=== PATIENT | female | born 1950 | race Caucasian/White ===

== ENCOUNTER 2017-11-06 20:19 | Emergency (ER) | payer MEDICARE, OTHER ==
--- NOTE | 2017-11-06 21:27 | Emergency Department Record ---
History of Present Illness - General Chief Complaint: Slurred speech Stated Complaint: NECK PAIN,DIFFICULTY SPEEKING Time Seen by Provider: 11/06/17 20:57 Source: Patient, Family Mode of Arrival: Wheelchair Limitations: No limitations - History of Present Illness Initial Comments: pt had dialysis today and afterwards developed slurred speech similar to when she had a tia in the past. it is improving. she has no new weakness or numbness. pt also had some transient weakness in the r hand. Onset/Timin -: Minutes(s) Location: Speech History of same: Yes Place: Home Severity: Mild Quality: Constant Improves With: None Worsens With: None On Anticoagulants: Yes Context: Sudden onset Associated Symptoms: Weakness Treatments Prior to Arrival: None - Irwin Coma Scale Eye Response: (4) Open spontaneously Motor Response: (6) Obeys commands Verbal Response: (5) Oriented Jennifer Total: 15 - Symptoms of Stroke Onset of Symptoms Date: 11/06/17 Symptom Onset Unknown: No Symptoms of stroke: Slurred Speech - Related Data Home Medications: Home Medications Medication Instructions Recorded Confirmed Last Taken Amlodipine Besylate 5 mg PO DAILY 11/06/17 11/06/17 Unknown Aspirin [Aspirin EC] 81 mg PO BID 11/06/17 11/06/17 Unknown Atorvastatin Calcium 40 mg PO QHS 11/06/17 11/06/17 Unknown Furosemide [Lasix] 20 mg PO DAILY 11/06/17 11/06/17 Unknown Gabapentin [Neurontin] 100 mg PO TID 11/06/17 11/06/17 Unknown Glimepiride [Amaryl] 1 mg PO QAM 11/06/17 11/06/17 Unknown Lisinopril [Prinivil] 5 mg PO DAILY 11/06/17 11/06/17 Unknown Metoprolol Succinate 50 mg PO DAILY 11/06/17 11/06/17 Unknown Ropinirole HCl [Requip] 0.25 mg PO QHS 11/06/17 11/06/17 Unknown Sevelamer Carbonate [Renvela] 800 mg PO TID 11/06/17 11/06/17 Unknown Allergies/Adverse Reactions: Allergies Allergy/AdvReac Type Severity Reaction Status Date / Time zolpidem [From Ambien] AdvReac ALTERED Verified 11/06/17 20:54 MENTAL STATUS Travel Screening - Travel/Exposure Within Last 30 Days Have you traveled within the last 30 days?: No - Travel Symptoms Symptom Screening: Weakness Review of Systems Reviewed: No additional complaints except as noted below Constitutional: Reports: As per HPI. Denies: Chills, Fever, Malaise, Night sweats, Weakness, Weight change Eyes: Reports: As per HPI. Denies: Eye discharge, Eye pain, Photophobia, Vision change ENT: Reports: As per HPI. Denies: Congestion, Dental pain, Ear pain, Epistaxis , Hearing loss, Throat pain Respiratory: Reports: As per HPI. Denies: Cough, Dyspnea, Hemoptysis, Stridor, Wheezes Cardiovascular: Reports: As per HPI. Denies: Arrhythmia, Chest pain, Dyspnea on exertion, Edema, Murmurs, Orthopnea, Palpitations, Paroxysmal nocturnal dyspnea, Rheumatic Fever, Syncope Endocrine: Reports: As per HPI. Denies: Fatigue, Heat or cold intolerance, Polydipsia, Polyuria Gastrointestinal: Reports: As per HPI. Denies: Abdominal pain, Constipation, Diarrhea, Hematemesis, Hematochezia, Melena, Nausea, Vomiting Genitourinary: Reports: As per HPI. Denies: Abnormal menses, Discharge, Dyspareunia, Dysuria, Frequency, Hematuria, Incontinence, Retention, Urgency Musculoskeletal: Reports: As per HPI. Denies: Arthralgia, Back pain, Gout, Joint swelling, Myalgia, Neck pain Skin: Reports: As per HPI. Denies: Bruising, Change in color, Change in hair/ nails, Lesions, Pruritus, Rash Neurological: Reports: As per HPI. Denies: Abnormal gait, Confusion, Headache, Numbness, Paresthesias, Seizure, Tingling, Tremors, Vertigo, Weakness Psychiatric: Reports: As per HPI. Denies: Anxiety, Auditory hallucinations, Depression, Homicidal thoughts, Suicidal thoughts, Visual hallucinations Hematological/Lymphatic: Reports: As per HPI. Denies: Anemia, Blood Clots, Easy bleeding, Easy bruising, Swollen glands Past Medical History - SOCIAL HISTORY Smoking Status: Never smoker Alcohol Use: None Drug Use: None - RESPIRATORY Hx Respiratory Disorders: No - CARDIOVASCULAR Hx Cardio Disorders: No - NEURO Hx Neuro Disorders: Yes Hx TIA: Yes ("MINI" STROKES) - GI Hx GI Disorders: No - Hx Genitourinary Disorders: No - ENDOCRINE Hx Endocrine Disorders: Yes Hx Diabetes: Yes (DMII) Hx Thyroid Disease: No - MUSCULOSKELETAL Hx Musculoskeletal Disorders: Yes Hx Gout: Yes - PSYCH Hx Psych Problems: No - HEMATOLOGY/ONCOLOGY Hx Hematology/Oncology Disorders: No Family Medical History Any Significant Family History?: No Physical Exam - General General Appearance: Alert, Oriented x3, Cooperative, Mild distress - Head Head exam: Normal inspection - Eye Eye exam: Normal appearance, PERRL, EOMI Pupils: Normal accommodation - ENT ENT exam: Normal exam, Mucous membranes moist, Normal external ear exam, Normal orophraynx Ear exam: Normal external inspection. negative: External canal tenderness Nasal Exam: Normal inspection. negative: Discharge, Sinus tenderness Mouth exam: Normal external inspection, Tongue normal Teeth exam: Normal inspection. negative: Dental caries Throat exam: Normal inspection. negative: Tonsillar erythema, Tonsillar exudate - Neck Neck exam: Normal inspection, Full ROM. negative: Tenderness - Respiratory Respiratory exam: Normal lung sounds bilaterally. negative: Respiratory distress - Cardiovascular Cardiovascular Exam: Regular rate, Normal rhythm, Normal heart sounds - GI/Abdominal GI/Abdominal exam: Soft, Normal bowel sounds. negative: Tenderness - Rectal Rectal exam: Deferred - exam: Deferred - Extremities Extremities exam: Normal inspection, Full ROM, Normal capillary refill. negative: Tenderness - Back Back exam: Reports: Normal inspection, Full ROM. Denies: Muscle spasm, Rash noted, Tenderness - Neurological Neurological exam: Alert, CN II-XII intact, Normal gait, Oriented X3, Other ( very slight slurring of speech) - Psychiatric Psychiatric exam: Normal affect, Normal mood - Skin Skin exam: Dry, Intact, Normal color, Warm Course Vital Signs 11/06/17 20:37 Temperature 99.0 F Pulse Rate [ 87 Pulse Ox Probe] Respiratory 20 Rate Blood Pressure 116/60 [Left Arm] Pulse Ox 97 Medical Decision Making - Lab Data Result diagrams: 11/06/17 21:10 11/06/17 21:10 Disposition Disposition: Transfer Clinical Impression: TIA (transient ischemic attack) Qualifiers: Transient cerebral ischemia type: unspecified Qualified Code(s): G45.9 - Transient cerebral ischemic attack, unspecified Disposition: Acute Care Hospital Transfer Transfer To: [facility] Reason For Transfer: stroke team Accepting Physician: derrick jorge Time Discussed w/Accepting Physician: 22:38 Forms: Patient Portal Access Quality - Quality Measures Quality Measures: N/A - Blood Pressure Screening Does Patient Have Any of the Following: Active Dx of HTN Blood Pressure Classification: Hypertensive Reading Systolic Measurement: 142 Diastolic Measurement: 63 Screening for High Blood Pressure: Patient Exclusion, Hx of HTN [G9744]
[2017-11-06 21:42] LABS: BASO % 0.1 % (0-6); EOS % 2.2 % (0-6); GRAN % 72.1 % (47-80); HEMATOCRIT 25.8 % (35.0-47.0); HEMOGLOBIN 8.3 gm/dl (11.6-16.0); LYMPH % 16.9 % (16-45); MEAN CORPUSCULAR HEMOGLOBIN 31.2 pg (27-33); MEAN CORPUSCULAR HGB CONC 32.2 g/dl (32-36); MEAN PLATELET VOLUME 8.3 fl (7.4-10.4); MONO % 8.7 % (0-9); PLATELET COUNT 281 K/uL (130-400); RED BLOOD COUNT 2.66 M/uL (3.80-5.40); RED CELL DISTRIBUTION WIDTH 13.9 % (11.5-14.5); WHITE BLOOD COUNT W/O DIFF 10.6 K/uL (4.2-12.2)
[2017-11-06 21:50] LABS: CREATININE 2.6 mg/dL (0.5-0.9)
--- NOTE | 2017-11-08 14:04 | CT SCAN REPORT ---
EXAM: EMERGENCY HEAD CT WITHOUT CONTRAST HISTORY: SLURRED SPEECH, VERTIGO, TUNNEL VISION. TECHNIQUE: Axial CT scan of the head was performed without IV contrast. Comparison: None. FINDINGS: No definite acute intracranial hemorrhage identified. No focal mass effect or midline shift evident. Moderate generalized atrophy is present and there is prominent chronic appearing diffuse deep white matter changes, nonspecific, but likely representing some chronic small vessel deep white matter ischemic disease. No definite acute infarct or intracranial mass lesion is seen. No depressed calvarial fracture is evident. IMPRESSION: 1. NO DEFINITE ACUTE INTRACRANIAL HEMORRHAGE OR FOCAL MASS EFFECT EVIDENT. 2. MODERATE GENERALIZED ATROPHY WITH DIFFUSE CHRONIC APPEARING DEEP WHITE MATTER CHANGES. [facility]BER: [id number] [facility]
== END 2017-11-06 23:50 | disposition short-term general hospital (02) ==
LOC: ER 20:19
DX: G45.9 Transient cerebral ischemic attack, unspecified (principal); E11.9 Type 2 diabetes mellitus without complications; I10 Essential (primary) hypertension; Z99.2 Dependence on renal dialysis; Z86.73 Personal history of transient ischemic attack (TIA), and cerebral infarction without residual deficits
CPT/HCPCS: 70450; 80048; 85025; 99285

== ENCOUNTER 2018-03-11 15:07 | Emergency (ER) | payer MEDICARE, OTHER ==
--- NOTE | 2018-03-11 15:31 | Emergency Department Record ---
History of Present Illness - General Chief Complaint: Shortness of breath Stated Complaint: HANNA Time Seen by Provider: 03/11/18 15:24 Source: Patient, Family Mode of Arrival: Wheelchair Limitations: No limitations - History of Present Illness Initial Comments: Pt to the ED with daughter with complaint of HANNA. Pt with hs COPD and using inhalers x 2 at home. Currently on prednisone for and "ear issue". No nebulizer at home. No fever or cough with sputum. Smoke quit for 5-6 years. Had normal dialysis today without incident. No CP. Onset/Timin -: Hour(s) Consistency: Constant Improves With: Nothing Worsens With: Lying flat Known History Of: COPD Associated Symptoms: Denies other symptoms - Related Data Home Oxygen Therapy: Yes Home Oxygen Amount: 2 Liters Allergies Allergy/AdvReac Type Severity Reaction Status Date / Time zolpidem [From Ambien] AdvReac ALTERED Verified 11/06/17 20:54 MENTAL STATUS Travel Screening - Travel/Exposure Within Last 30 Days Have you traveled within the last 30 days?: No Review of Systems Constitutional: Denies: Chills, Fever, Weakness Eyes: Denies: Eye discharge ENT: Denies: Congestion, Epistaxis Respiratory: Reports: As per HPI, Cough, Dyspnea, Wheezes. Denies: Hemoptysis Cardiovascular: Denies: Arrhythmia, Chest pain, Palpitations Endocrine: Denies: Fatigue Gastrointestinal: Denies: Abdominal pain, Constipation, Vomiting Musculoskeletal: Denies: Arthralgia, Back pain Skin: Denies: Rash Neurological: Denies: Abnormal gait, Headache, Numbness Psychiatric: Denies: Anxiety, Suicidal thoughts Hematological/Lymphatic: Denies: Swollen glands Past Medical History - SOCIAL HISTORY Smoking Status: Never smoker - RESPIRATORY Hx Respiratory Disorders: No - CARDIOVASCULAR Hx Cardio Disorders: No - NEURO Hx Neuro Disorders: Yes Hx TIA: Yes ("MINI" STROKES) - GI Hx GI Disorders: No - Hx Genitourinary Disorders: No Hx Dialysis: Yes Hx Renal Disease: Yes Hx UTI: Yes (with urosepsis) - ENDOCRINE Hx Endocrine Disorders: Yes Hx Diabetes: Yes (DMII) Hx Thyroid Disease: No - MUSCULOSKELETAL Hx Musculoskeletal Disorders: Yes Hx Gout: Yes - PSYCH Hx Psych Problems: No - HEMATOLOGY/ONCOLOGY Hx Hematology/Oncology Disorders: No Family Medical History Any Significant Family History?: Yes Physical Exam - General General Appearance: Alert, Oriented x3, Cooperative, Mild distress - Head Head exam: Atraumatic - Eye Eye exam: Normal appearance, PERRL - ENT ENT exam: Normal exam, TM's normal bilaterally Ear exam: Normal external inspection - Neck Neck exam: Normal inspection. negative: Lymphadenopathy, Tenderness - Respiratory Respiratory exam: Decreased breath sounds, Prolonged expiratory, Rhonchi. negative: Rales, Stridor, Wheezes - Cardiovascular Cardiovascular Exam: Regular rate, Normal rhythm. negative: Tachycardia Peripheral Pulses: 2+: Radial (R), Radial (L) - GI/Abdominal GI/Abdominal exam: Soft, Normal bowel sounds. negative: Guarding, Tenderness - Extremities Extremities exam: Normal inspection. negative: Calf tenderness, Pedal edema - Back Back exam: Reports: Normal inspection - Neurological Neurological exam: Alert, Oriented X3 (normal speech) - Psychiatric Psychiatric exam: Normal affect, Normal mood - Skin Skin exam: Normal color. negative: Rash Course Vital Signs 03/11/18 15:14 Temperature 98.4 F Pulse Rate 85 Respiratory 20 Rate Blood Pressure 160/66 Pulse Ox 94 L - Reevaluation(s) Reevaluation #1: 03/11/18 16:03 slightly better after treatment with Neb. To XRay Reevaluation #2: 03/11/18 16:43 Pt much better. Xray with mild fluid overload and pt is just post dialysis. Pt comfortable with PO 97% on 1 liter Oxygen. Has home O2. Daughter and pt agree with the plan. Procedures - EKG Initial Date: 03/11/18 Time: 16:02 EKG: Normal EKG Medical Decision Making - Data Complexity MDM Data: Labs Ordered and/or Reviewed, X-Ray Ordered and/or Reviewed, EKG Ordered and/or Reviewed - Lab Data Result diagrams: 03/11/18 15:40 03/11/18 15:40 - EKG Data -: EKG Interpreted by Me EKG: Normal EKG - Radiology Data Radiology results: Report reviewed, Image reviewed Disposition Disposition: Discharge Clinical Impression: Dyspnea Disposition: Home, Self-Care Condition: (2) Stable Instructions: Dyspnea (ED) Additional Instructions: Continue to use your oxygen at home tonight and as needed tomorrow. If you feel more short of breath return to the ED or call 911. Use you home medciations as directed previously. Daughter agrees Forms: Patient Portal Access Quality - Blood Pressure Screening Does Patient Have Any of the Following: No Blood Pressure Classification: Hypertensive Reading Systolic Measurement: 160 Diastolic Measurement: 66
[2018-03-11] MEDS ORDERED: IPRATROPIUM/ALBUTEROL (0.5MG/3MG) NEB INH ONE ×2 (15:33→16:30)
[2018-03-11 15:49] LABS: HEMATOCRIT 29.1 % (35.0-47.0); HEMOGLOBIN 9.6 gm/dl (11.6-16.0); MEAN CELL VOLUME 94.2 fl (81-97); MEAN PLATELET VOLUME 8.2 fl (7.4-10.4); PLATELET COUNT 179 K/uL (130-400); RED BLOOD COUNT 3.09 M/uL (3.80-5.40); RED CELL DISTRIBUTION WIDTH 12.8 % (11.5-14.5); WHITE BLOOD COUNT W/O DIFF 6.4 K/uL (4.2-12.2)
[2018-03-11 16:00] LABS: HYPOCHROMIA 1+; PLATELET ESTIMATE NORMAL (NORMAL)
--- NOTE | 2018-03-13 08:12 | RADIOLOGY REPORT ---
EXAM: CHEST, TWO VIEWS HISTORY: DIFFICULTY BREATHING, DIALYSIS PATIENT. TECHNIQUE: PA and lateral views of the chest were obtained. Comparison: None. FINDINGS: Frontal and lateral views of the chest show well expanded lungs. Diffuse peribronchial thickening. Mild pulmonary vascular congestion and peribronchial thickening. No air space disease. No pleural effusion or pneumothorax. The cardiomediastinal silhouette is within normal limits. The bony structures are unremarkable. IMPRESSION: MILD PULMONARY VASCULAR CONGESTION/FLUID OVERLOAD. THERE IS ALSO MILD PERIBRONCHIAL THICKENING. RECOMMEND FOLLOW-UP RADIOGRAPHS IN FOUR TO SIX WEEKS. [facility]BER: [id number] [facility]
== END 2018-03-11 17:03 | disposition home or self-care (01) ==
LOC: ER 15:07
DX: R06.00 Dyspnea, unspecified (principal); I12.0 Hypertensive chronic kidney disease with stage 5 chronic kidney disease or end stage renal disease; E11.22 Type 2 diabetes mellitus with diabetic chronic kidney disease; N18.6 End stage renal disease; J44.9 Chronic obstructive pulmonary disease, unspecified; Z87.891 Personal history of nicotine dependence; Z79.84 Long term (current) use of oral hypoglycemic drugs; Z99.81 Dependence on supplemental oxygen; Z99.2 Dependence on renal dialysis
CPT/HCPCS: 71046; 80048; 85027; 93005; 93010; 94640; 99284

== ENCOUNTER 2018-04-11 19:24 | Emergency (ER) | payer MEDICARE, OTHER ==
[2018-04-11] MEDS ORDERED: IPRATROPIUM/ALBUTEROL (0.5MG/3MG) NEB INH ONE (19:31)
[2018-04-11] MEDS ORDERED: METHYLPREDNISOLONE PF 125MG/VIAL IVP ONE (19:31)
--- NOTE | 2018-04-11 19:36 | Emergency Department Record ---
History of Present Illness - General Chief complaint: ENT Stated complaint: SORE THROAT,COUGH Time Seen by Provider: 04/11/18 19:30 Source: Patient Mode of Arrival: Ambulatory Limitations: No limitations - History of Present Illness Initial comments: 67 yo female presents with several days of cough, green sputum, shortness of breath. She has associated shortness of breath. She states she has been exposed to others with similar symptoms. She states she has COPD and has had pneumonia in the past. She is up to date on her Flu and Pneumonia shot. She is on oxygen at home only at night time. She is not a smoker currently but quit 8 years ago. She does live with smokers. No history of CAD per the patient. She does have ESRD on HD Saturday, , Saturday. She states she did have a full HD run on . She states she does not know the name of her family doctor or her fur ironer but they are at [facility]. Initial room air oxygen levels were mid 70's after walking in from the lobby. She states she only uses oxygen PRN at night. MD complaint: Sore throat, Other (cough, short of breath) -: Days(s) Location: Throat Severity: Moderate Quality: Aching Consistency: Constant Improves with: None Worsens with: Swallowing Context-Epistaxis: History of similar Associated Symptoms: Cough, Fever, Rhinorrhea, Sore throat - Related Data Home Medications Medication Instructions Recorded Confirmed Last Taken Citalopram Hydrobromide 20 mg PO DAILY 04/11/18 04/11/18 Unknown [Citalopram HBr] Fluticasone/Salmeterol [Advair 1 each IH DAILY 04/11/18 04/11/18 Unknown 500-50 Diskus] Melatonin 5 mg PO QHS PRN 04/11/18 04/11/18 Unknown Tiotropium [place] [Spiriva] 1 cap IH DAILY 04/11/18 04/11/18 Unknown Allergies Allergy/AdvReac Type Severity Reaction Status Date / Time zolpidem [From Ambien] AdvReac ALTERED Verified 11/06/17 20:54 MENTAL STATUS Review of Systems Constitutional: Reports: Fever, Malaise, Weakness. Denies: Chills Eyes: Denies: Eye discharge, Eye pain, Photophobia, Vision change ENT: Reports: Congestion, Throat pain Respiratory: Reports: Cough, Dyspnea, Wheezes. Denies: Hemoptysis Cardiovascular: Denies: Chest pain, Palpitations, Syncope Endocrine: Reports: Fatigue Gastrointestinal: Denies: Abdominal pain, Diarrhea, Nausea, Vomiting Genitourinary: Denies: Dysuria, Urgency Musculoskeletal: Denies: Arthralgia, Back pain, Joint swelling, Myalgia Skin: Denies: Bruising, Change in color, Rash Neurological: Denies: Headache Psychiatric: Denies: Anxiety Hematological/Lymphatic: Denies: Blood Clots, Easy bleeding, Easy bruising, Swollen glands Past Medical History - SOCIAL HISTORY Smoking Status: Never smoker - RESPIRATORY Hx Respiratory Disorders: No - CARDIOVASCULAR Hx Cardio Disorders: No - NEURO Hx Neuro Disorders: Yes Hx TIA: Yes ("MINI" STROKES) - GI Hx GI Disorders: No - Hx Genitourinary Disorders: No Hx Dialysis: Yes Hx Renal Disease: Yes Hx UTI: Yes (with urosepsis) - ENDOCRINE Hx Endocrine Disorders: Yes Hx Diabetes: Yes (DMII) Hx Thyroid Disease: No - MUSCULOSKELETAL Hx Musculoskeletal Disorders: Yes Hx Gout: Yes - PSYCH Hx Psych Problems: No - HEMATOLOGY/ONCOLOGY Hx Hematology/Oncology Disorders: No Physical Exam - General General Appearance: Alert, Oriented x3, Cooperative Limitations: No limitations - Head Head exam: Atraumatic, Normal inspection - Eye Eye exam: Normal appearance. negative: Conjunctival injection, Scleral icterus - ENT ENT exam: Normal exam, Normal orophraynx. negative: Mucous membranes moist Ear exam: Normal external inspection Nasal Exam: Normal inspection Mouth exam: Normal external inspection Teeth exam: Normal inspection Throat exam: Normal inspection - Neck Neck exam: Normal inspection, Full ROM. negative: Lymphadenopathy, Meningismus - Respiratory Respiratory exam: Decreased breath sounds, Prolonged expiratory, Rhonchi, Wheezes. negative: Normal lung sounds bilaterally - Cardiovascular Cardiovascular Exam: Regular rate, Normal rhythm, Normal heart sounds Peripheral Pulses: 2+: Radial (R), Radial (L) - GI/Abdominal GI/Abdominal exam: Soft. negative: Tenderness - Rectal Rectal exam: Deferred - exam: Deferred - Extremities Extremities exam: Normal inspection, Full ROM, Normal capillary refill. negative: Pedal edema, Tenderness - Back Back exam: Denies: CVA tenderness (R), CVA tenderness (L) - Neurological Neurological exam: Alert, Oriented X3 - Psychiatric Psychiatric exam: Normal affect, Normal mood. negative: Agitated, Anxious - Skin Skin exam: Dry, Intact, Normal color, Warm Course - Reevaluation(s) Reevaluation #1: The patient's oxygen level increased to low 90's with 3 LNC and a Duoneb. EKG 19:46 Sinus Rhythm, Rate is 78, Intervals normal, [place] normal, ST normal. No change from 03/11/18 04/11/18 19:51 04/11/18 20:03 [facility] Records reviewed. Hx of COPD,ESRD,CHF,DM,Anemia,HTN,Former heavy smoker , TIA, UTI, Elevated Cholesterol, PAD 04/11/18 20:12 The labs were reviewed The CBC demonstrates a chronic stable anemia with hgb of 10.2 The CR is 3.2 with a K of 3.8 The strep and influenza are negative 04/11/18 20:14 The patient's daughter is now in the ED. She states the PCP is Duc Sheets. The daughter in the room states she personally tested positive for strep 04/11/18 20:17 Patient on 2 LNC with improved work of breathing. No sign of fatigue. 04/11/18 20:19 Troponin is 0.024 ONE CALL called at [facility] to arrange transfer 04/11/18 20:29 CXR was read as no acute infiltrate or effusion. NO PVC. 04/11/18 20:42 Dr Culp of the hospitalist service accepts the patient for transfer 04/11/18 20:46 04/11/18 21:15 EMS in the ED and is stable for transfer. Medical Decision Making - Lab Data Result diagrams: 04/11/18 19:45 04/11/18 19:45 Disposition Disposition: Transfer Clinical Impression: Dyspnea, Hypoxia, ESRD (end stage renal disease), COPD (chronic obstructive pulmonary disease) with acute bronchitis Disposition: Acute Care Hospital Transfer Transfer To: [facility] Reason For Transfer: ESRD on HD, Hypoxia,COPD with Bronchitis Accepting Physician: Suni Time Discussed w/Accepting Physician: 20:43 Condition: (2) Stable Forms: Patient Portal Access Time of Disposition: 19:53 Quality - Quality Measures Quality Measures: N/A - Blood Pressure Screening Does Patient Have Any of the Following: Active Dx of HTN Blood Pressure Classification: Hypertensive Reading Systolic Measurement: 152 Diastolic Measurement: 61 Screening for High Blood Pressure: Patient Exclusion, Hx of HTN [G9744]
[2018-04-11 19:56] LABS: BASO % 0.2 % (0-6); EOS % 0.9 % (0-6); GRAN % 78.4 % (47-80); HEMATOCRIT 32.7 % (35.0-47.0); HEMOGLOBIN 10.7 gm/dl (11.6-16.0); LYMPH % 12.6 % (16-45); MEAN CORPUSCULAR HEMOGLOBIN 30.7 pg (27-33); MEAN CORPUSCULAR HGB CONC 32.7 g/dl (32-36); MEAN PLATELET VOLUME 8.8 fl (7.4-10.4); MONO % 7.9 % (0-9); PLATELET COUNT 194 K/uL (130-400); RED BLOOD COUNT 3.48 M/uL (3.80-5.40); RED CELL DISTRIBUTION WIDTH 13.5 % (11.5-14.5); WHITE BLOOD COUNT W/O DIFF 8.6 K/uL (4.2-12.2)
[2018-04-11 20:09] LABS: BILIRUBIN,TOTAL 0.8 mg/dL (0.2-1.0); CREATININE 3.8 mg/dL (0.5-0.9); INFLUENZA A NEGATIVE (NEGATIVE); INFLUENZA B NEGATIVE (NEGATIVE); STREP A SCREEN NEGATIVE (NEGATIVE)
[2018-04-11 20:10] LABS: TOTAL PROTEIN 6.5 g/dL (6.6-8.7)
[2018-04-11] MEDS ORDERED: CEFTRIAXONE SODIUM 1 GM in 0.9 % SODIUM CHLORIDE 100ML 100 ML IVPB ONE (20:13)
[2018-04-11] MEDS ORDERED: AZITHROMYCIN 500 MG TABLET PO ONE (20:13)
[2018-04-11 20:15] LABS: ALB/GLOB RATIO 1.2 (1.1-1.8); ALBUMIN 3.6 g/dL (4.0-5.0)
--- NOTE | 2018-04-14 10:37 | RADIOLOGY REPORT ---
EXAM: CHEST, TWO VIEWS HISTORY: DIFFICULTY BREATHING. TECHNIQUE: Frontal and lateral views of the chest were performed. Comparison: 03/11/18. FINDINGS: The heart size is normal. No pulmonary vascular congestion. No infiltrate or pleural effusion. IMPRESSION: NO ACUTE DISEASE PROCESS. JOB NUMBER: [id number] [facility]
== END 2018-04-11 21:23 | disposition short-term general hospital (02) ==
LOC: ER 19:24
DX: E11.22 Type 2 diabetes mellitus with diabetic chronic kidney disease (principal); I13.2 Hypertensive heart and chronic kidney disease with heart failure and with stage 5 chronic kidney disease, or end stage renal disease; I50.9 Heart failure, unspecified; N18.6 End stage renal disease; R09.02 Hypoxemia; J44.9 Chronic obstructive pulmonary disease, unspecified; J02.9 Acute pharyngitis, unspecified; J20.9 Acute bronchitis, unspecified; Z87.891 Personal history of nicotine dependence; Z99.81 Dependence on supplemental oxygen; Z99.2 Dependence on renal dialysis; Z86.73 Personal history of transient ischemic attack (TIA), and cerebral infarction without residual deficits
CPT/HCPCS: 71046; 80053; 84484; 85025; 87400; 87880; 93005; 93010; 94640; 96365; 96375; 99285; J2930

== ENCOUNTER 2018-06-04 21:11 | Emergency (ER) | payer MEDICARE, OTHER ==
[2018-06-04 21:35] LABS: BASO % 0.1 % (0-6); GRAN % 74.9 % (47-80); HEMOGLOBIN 11.4 gm/dl (11.6-16.0); LYMPH % 17.6 % (16-45); MEAN CELL VOLUME 93.5 fl (81-97); MEAN CORPUSCULAR HEMOGLOBIN 29.6 pg (27-33); MEAN CORPUSCULAR HGB CONC 31.7 g/dl (32-36); MEAN PLATELET VOLUME 8.5 fl (7.4-10.4); MONO % 5.4 % (0-9); PLATELET COUNT 183 K/uL (130-400); RED BLOOD COUNT 3.85 M/uL (3.80-5.40); RED CELL DISTRIBUTION WIDTH 13.8 % (11.5-14.5); WHITE BLOOD COUNT W/O DIFF 8.6 K/uL (4.2-12.2)
--- NOTE | 2018-06-04 21:41 | Emergency Department Record ---
History of Present Illness - General Chief Complaint: Dizziness Stated Complaint: LIP NUMBNESS, OFF BALANCE Time Seen by Provider: 06/04/18 21:13 Source: Patient, Family Mode of Arrival: Wheelchair Limitations: No limitations - History of Present Illness Initial Comments: The patient is here due to feeling off balance for 2 days intermittently. She has a long hx of balance issues and does use a cane for walking. The symptoms seem to be worse the last 2 days and are sometimes worse with bending over. This evening she had numbness to her tongue and lower lip that lasted for a few minutes and then resolved. Due to that fact she decided to come to the ER. The patient has a hx of renal failure and is on dialysis , , and Sat. She did miss her last Saturday diaysis appointment due to the weather. She denies any arm or leg numbness, weakness, visual changes, or speech problems. The patient does have a hx of "ministrokes" per her daughter and was here in the ER in November for similar issues as today. She was sent to [facility] and had a neg workup. MD Complaint: Dizziness Onset/Timin -: Days(s) Timing: Gradual onset Description: Off-balance History of Same: Yes History of Trauma: No Severity: Moderate Worsens With: Nothing Associated Symptoms: Denies other symptoms - [place] Coma Scale Eye Response: (4) Open spontaneously Motor Response: (6) Obeys commands Verbal Response: (5) Oriented Jennifer Total: 15 - Related Data Home Medications Medication Instructions Recorded Confirmed Last Taken Allopurinol 100 mg PO BID 06/04/18 06/04/18 Unknown Glipizide 5 mg PO DAILY 06/04/18 06/04/18 Unknown Allergies Allergy/AdvReac Type Severity Reaction Status Date / Time zolpidem [From Ambien] AdvReac ALTERED Verified 06/04/18 21:56 MENTAL STATUS Travel Screening - Travel/Exposure Within Last 30 Days Have you traveled within the last 30 days?: No - Travel Symptoms Symptom Screening: None Review of Systems Constitutional: Denies: Chills, Fever Eyes: Denies: Eye discharge ENT: Denies: Congestion Respiratory: Denies: Cough Cardiovascular: Denies: Arrhythmia Endocrine: Denies: Fatigue Gastrointestinal: Denies: Abdominal pain, Nausea Genitourinary: Denies: Other Musculoskeletal: Denies: Arthralgia, Back pain Skin: Denies: Bruising Neurological: Reports: Abnormal gait. Denies: Confusion Past Medical History - SOCIAL HISTORY Smoking Status: Never smoker Alcohol Use: None Drug Use: None - RESPIRATORY Hx Respiratory Disorders: Yes Hx COPD: Yes Comment:: O2 at night - CARDIOVASCULAR Hx Cardio Disorders: Yes Hx CHF: Yes Comment:: high cholesterol - NEURO Hx Neuro Disorders: Yes Hx TIA: Yes ("MINI" STROKES) - GI Hx GI Disorders: No - Hx Genitourinary Disorders: Yes Hx Dialysis: Yes Hx Renal Disease: Yes (STAGE 4) Hx UTI: Yes (with urosepsis) - ENDOCRINE Hx Endocrine Disorders: Yes Hx Diabetes: Yes (DMII) Hx Thyroid Disease: No - MUSCULOSKELETAL Hx Musculoskeletal Disorders: Yes Hx Gout: Yes - PSYCH Hx Psych Problems: No - HEMATOLOGY/ONCOLOGY Hx Hematology/Oncology Disorders: No Family Medical History Any Significant Family History?: Yes Hx Cancer: Brother/Sister Hx Heart Disease: Mother Physical Exam - General General Appearance: Alert, Oriented x3, Cooperative, No acute distress - Head Head exam: Atraumatic, Normocephalic, Normal inspection - Eye Eye exam: Normal appearance, PERRL, EOMI - ENT Throat exam: Normal inspection. negative: Tonsillar erythema, Tonsillar exudate - Neck Neck exam: Normal inspection, Full ROM. negative: Tenderness - Respiratory Respiratory exam: Normal lung sounds bilaterally. negative: Respiratory distress - Cardiovascular Cardiovascular Exam: Regular rate, Normal rhythm, Normal heart sounds - GI/Abdominal GI/Abdominal exam: Soft, Normal bowel sounds. negative: Tenderness - Extremities Extremities exam: Normal inspection, Full ROM, Normal capillary refill. negative: Tenderness - Back Back exam: Reports: Normal inspection - Neurological Neurological exam: Alert, Normal gait, Oriented X3, Other (Neg drift and rhomberg exams. Finger to nose normal bilaterally.). negative: Abnormal gait, Altered, Motor sensory deficit - Psychiatric Psychiatric exam: negative: Anxious Course Vital Signs 06/04/18 21:13 Temperature 97.8 F Pulse Rate 80 Respiratory 20 Rate Blood Pressure 178/75 Pulse Ox 93 L - Reevaluation(s) Reevaluation #1: The patient is doing very well at this time. She still feels normal and denies any lip numbness, any arm or leg weakness or numbness, speech problems, trouble swallowing or visual changes. I explained to her that her evaluation does not demonstrate any acute abnormalities to attribute her symptoms to. Because of that along with the need for dialysis in the morning I did recommend transfer to [facility] where her PCP and Kidney doctors work. The patient is refusing that plan. I then did explain to her that by going home she could develop a stroke, [place], could become disabled and even . By leaving and NOT being admitted we could not be held liable for any adverse outcome. The patient presently has proper decision making capacity and understands the risks of leaving. She was instructed to return to the ER for any worsening symptoms. 06/04/18 22:11 Medical Decision Making - Data Complexity MDM Data: Labs Ordered and/or Reviewed, X-Ray Ordered and/or Reviewed, EKG Ordered and/or Reviewed - Lab Data Result diagrams: 06/04/18 21:30 06/04/18 21:30 Lab Results 06/04/18 06/04/18 Range/Units 21:30 21:30 WBC 8.6 (4.2-12.2) K/uL RBC 3.85 (3.80-5.40) M/uL Hgb 11.4 L (11.6-16.0) gm/dl Hct 36.0 (35.0-47.0) % MCV 93.5 (81-97) fl MCH 29.6 (27-33) pg MCHC 31.7 L (32-36) g/dl RDW 13.8 (11.5-14.5) % Plt Count 183 (130-400) K/uL MPV 8.5 (7.4-10.4) fl Gran % 74.9 (47-80) % Lymphocytes % 17.6 (16-45) % Monocytes % 5.4 (0-9) % Eosinophils % 2.0 (0-6) % Basophils % 0.1 (0-6) % Total Bilirubin Cancelled AST Cancelled ALT Cancelled Alkaline Phosphatase Cancelled Total Protein Cancelled Albumin Cancelled Globulin Cancelled Albumin/Globulin Ratio Cancelled - EKG Data -: EKG Interpreted by Me (NSR at 70, Borderline flipped T waves lead III and AVF.) - Radiology Data Radiology results: Report reviewed (Head CT: neg for any acute changes.) Disposition Disposition: Discharge Clinical Impression: TIA (transient ischemic attack) Disposition: Against Medical Advice Condition: (2) Stable Instructions: Dizziness (ED) Additional Instructions: Please continue your regular medicines and please have your dialysis in the morning. Return to the ER for any worsening symptoms. Please see your family doctor later this week for recheck. Forms: Patient Portal Access Time of Disposition: 22:16 Quality - Quality Measures Quality Measures: N/A - Blood Pressure Screening View Details: Yes Does Patient Have Any of the Following: Active Dx of HTN Blood Pressure Classification: Hypertensive Reading Systolic Measurement: 178 Diastolic Measurement: 75 Screening for High Blood Pressure: Patient Exclusion, Hx of HTN [G9744]
[2018-06-04 21:47] LABS: BLOOD UREA NITROGEN 55 mg/dL (8-23); CREATININE 5.8 mg/dL (0.5-0.9); EST GLOMERULAR FILTRATION RATE 8 mL/min; INR 1.1; PARTIAL THROMBOPLASTIN TIME 29.9 SECONDS (24.5-39.1); PROTHROMBIN TIME (PATIENT) 10.7 SECONDS (9.5-12.1)
[2018-06-04 21:50] LABS: GLUCOSE,RANDOM 100 mg/dL (74-109)
[2018-06-04 21:53] LABS: CREATINE PHOSPHOKINASE 110 U/L (26-192)
[2018-06-04 21:54] LABS: CKMB 3.1 ng/mL (<3.77)
--- NOTE | 2018-06-06 14:25 | CT SCAN REPORT ---
EXAM: CT OF THE HEAD WITHOUT CONTRAST HISTORY: WORSENING OF LOSS OF BALANCE. LIP NUMBNESS. DIZZINESS. TECHNIQUE: Routine noncontrast CT examination of the head was performed. Comparison: CT of the head without contrast dated 11/06/17. FINDINGS: The subarachnoid spaces remain mildly dilated. The ventricles are at the upper limits of normal in size. Moderate periventricular and subcortical white matter lucencies are again noted scattered throughout each cerebral hemisphere symmetrically. These are unchanged and are consistent with chronic small vessel ischemia. No other area of abnormally increased or decreased attenuation is noted throughout the brain substance. No abnormal extraaxial fluid collection is seen. There is apparent hyperdensity of the proximal basilar artery likely due to artifact due to motion and the adjacent temporal bones with thrombosis much less likely. No abnormal extraaxial fluid collection is seen. No skull fracture is identified. The visualized paranasal sinuses are clear. No new mastoid air cell opacification identified. Bilateral cataract surgery changes are noted. The orbits as visualized are otherwise unremarkable. IMPRESSION: 1. NO CONVINCING CT EVIDENCE OF ACUTE MAJOR VESSEL INFARCT, INTRACRANIAL HEMORRHAGE NOR MASS WITHOUT CHANGE IN APPEARANCE OF THE BRAIN SINCE 11/06/17. 2. GENERALIZED ATROPHY. MODERATE WHITE MATTER LUCENCIES IN EACH CEREBRAL HEMISPHERE REDEMONSTRATED CONSISTENT WITH CHRONIC SMALL VESSEL ISCHEMIA. 3. APPARENT HYPERDENSITY OF THE PROXIMAL BASILAR ARTERY LIKELY RELATES TO BEAM HARDENING ARTIFACT AND MOTION ARTIFACT RATHER THAN THROMBOSIS. JOB NUMBER: [id number] [facility]
== END 2018-06-04 22:29 | disposition left against medical advice (07) ==
LOC: ER 21:11
DX: G45.9 Transient cerebral ischemic attack, unspecified (principal); E11.22 Type 2 diabetes mellitus with diabetic chronic kidney disease; N18.4 Chronic kidney disease, stage 4 (severe); R40.2412 Glasgow coma scale score 13-15, at arrival to emergency department; I50.9 Heart failure, unspecified; J44.9 Chronic obstructive pulmonary disease, unspecified; Z99.81 Dependence on supplemental oxygen; Z99.2 Dependence on renal dialysis
CPT/HCPCS: 70450; 80048; 82550; 82553; 84484; 85025; 85610; 85730; 93005; 93010; 99284

== ENCOUNTER 2019-03-26 14:37 | Emergency (ER) | payer MEDICARE ==
[2019-03-26] MEDS ORDERED: ACETAMINOPHEN 325 MG TAB PO ONE (14:52)
--- NOTE | 2019-03-26 14:58 | Emergency Department Record ---
History of Present Illness - General Chief complaint: Weakness Stated complaint: NECK PAIN AND WEAK Time Seen by Provider: 03/26/19 14:50 Source: Patient Mode of Arrival: Ambulatory Limitations: No limitations - History of Present Illness Initial comments: Pt to ED with daughter form [facility] by WC for complaint of general weakness. Pt is CRF on M/W/F hemodialysis. She reports feeling a "heaviness to her arms" for "days to months". She denies change in speech, weakness to one extremity, she notes occasionally note blurry vision and her daughter states her "sugars vary widely". There is no fever, vomiting, diarrhea, No anterior Chest pain or HANNA. Location: Generalized Improves with: None Worsens with: None - [place] Coma Scale Eye Response: (4) Open spontaneously Motor Response: (6) Obeys commands Verbal Response: (5) Oriented Jennifer Total: 15 - Related Data Allergies Allergy/AdvReac Type Severity Reaction Status Date / Time zolpidem [From Ambien] AdvReac ALTERED Verified 03/26/19 14:49 MENTAL STATUS Travel Screening - Travel/Exposure Within Last 30 Days Have you traveled within the last 30 days?: No Review of Systems Constitutional: Reports: Weakness. Denies: Chills, Fever Eyes: Reports: As per HPI, Vision change. Denies: Eye discharge, Photophobia ENT: Denies: Congestion, Ear pain Respiratory: Denies: Cough, Dyspnea Cardiovascular: Denies: Chest pain, Syncope Gastrointestinal: Denies: Abdominal pain, Diarrhea, Nausea, Vomiting Musculoskeletal: Reports: Neck pain, Other (upper trap pains) Skin: Denies: Rash Neurological: Reports: As per HPI, Weakness. Denies: Seizure Psychiatric: Denies: Suicidal thoughts Past Medical History - SOCIAL HISTORY Smoking Status: Never smoker Alcohol Use: None Drug Use: None - RESPIRATORY Hx Respiratory Disorders: Yes Hx COPD: Yes Comment:: O2 at night - CARDIOVASCULAR Hx Cardio Disorders: Yes Hx CHF: Yes Comment:: high cholesterol - NEURO Hx Neuro Disorders: Yes Hx TIA: Yes ("MINI" STROKES) - GI Hx GI Disorders: No - Hx Genitourinary Disorders: Yes Hx Dialysis: Yes (M,W,F) Hx Renal Disease: Yes (STAGE 4) Hx UTI: Yes (with urosepsis) - ENDOCRINE Hx Endocrine Disorders: Yes Hx Diabetes: Yes (DMII) Hx Thyroid Disease: No - MUSCULOSKELETAL Hx Musculoskeletal Disorders: Yes Hx Gout: Yes - PSYCH Hx Psych Problems: No - HEMATOLOGY/ONCOLOGY Hx Hematology/Oncology Disorders: No Family Medical History Any Significant Family History?: Yes Hx Cancer: Brother/Sister Hx Heart Disease: Mother Physical Exam - General General Appearance: Alert, Oriented x3, Cooperative, No acute distress - Head Head exam: Atraumatic - Eye Eye exam: PERRL, EOMI - ENT ENT exam: Mucous membranes moist, TM's normal bilaterally Ear exam: Normal external inspection Nasal Exam: Normal inspection Teeth exam: Other (no teeth, no denture) Throat exam: Normal inspection - Neck Neck exam: Tenderness (muscular tenderness to paraspinal and trap muscles. ) - Respiratory Respiratory exam: Normal lung sounds bilaterally. negative: Respiratory distress, Stridor - Cardiovascular Cardiovascular Exam: Regular rate, Systolic murmur. negative: Tachycardia Peripheral Pulses: 2+: Radial (R), Radial (L) - GI/Abdominal GI/Abdominal exam: Soft, Normal bowel sounds. negative: Distended, Tenderness - Extremities Extremities exam: Normal inspection, Other (AV fistula right arm with good thrill and bruit). negative: Calf tenderness - Back Back exam: Reports: Normal inspection. Denies: Paraspinal tenderness, Vertebral tenderness - Neurological Neurological exam: Alert, Oriented X3. negative: Motor sensory deficit - Psychiatric Psychiatric exam: Normal affect, Normal mood - Skin Skin exam: Normal color Course Vital Signs 03/26/19 14:39 Temperature 99.1 F Pulse Rate 88 Respiratory 22 Rate Blood Pressure 157/87 Pulse Ox 95 - Reevaluation(s) Reevaluation #1: 03/26/19 16:23 Pt and daughter in room. Reviewed results. Feeling "OK" at this time. Plan is for home Procedures - EKG Initial Date: 03/26/19 Time: 15:04 EKG: Normal EKG (NSR 75 ) Medical Decision Making - Lab Data Result diagrams: 03/26/19 15:00 03/26/19 15:00 Disposition Disposition: Discharge Clinical Impression: Weakness, Chronic renal failure Disposition: Home, Self-Care Condition: (2) Stable Instructions: Weakness (ED) Additional Instructions: GO TO YOUR DIALYSIS IN am SCHEDULED. Return to the ED as needed. Forms: Patient Portal Access Time of Disposition: 16:23 Quality - Quality Measures Quality Measures: N/A - Blood Pressure Screening Does Patient Have Any of the Following: No, Active Dx of HTN Blood Pressure Classification: Pre-Hypertensive BP Reading Systolic Measurement: 157 Diastolic Measurement: 87 Screening for High Blood Pressure: Patient Exclusion, Hx of HTN [G9744]
[2019-03-26 15:18] LABS: ABSOLUTE NEUTROPHIL COUNT 6.17; BASO % 0.2 % (0-6); EOS % 1.8 % (0-6); GRAN % 70.6 % (47-80); HEMATOCRIT 35.4 % (35.0-47.0); HEMOGLOBIN 10.9 gm/dl (11.6-16.0); LYMPH % 17.9 % (16-45); MEAN CELL VOLUME 99.7 fl (81-97); MEAN CORPUSCULAR HEMOGLOBIN 30.7 pg (27-33); MEAN CORPUSCULAR HGB CONC 30.8 g/dl (32-36); MONO % 9.5 % (0-9); PLATELET COUNT 233 K/uL (130-400); RED BLOOD COUNT 3.55 M/uL (3.80-5.40); RED CELL DISTRIBUTION WIDTH 14.6 % (11.5-14.5); WHITE BLOOD COUNT W/O DIFF 8.8 K/uL (4.2-12.2)
--- NOTE | 2019-03-26 15:21 | RADIOLOGY REPORT ---
EXAMINATION: Two View Chest Radiographs EXAM DATE: 03/26/2019 3:17 PM TECHNIQUE: Frontal and lateral views INDICATION: Weakness. COMPARISON: None ENCOUNTER: Not applicable FINDINGS: The cardiac and mediastinal silhouettes are within normal limits. There are patchy bibasilar opacitie s with mild central vascular prominence. No pneumothorax or pleural effusion. IMPRESSION: Mild central vascular prominence with patchy bibasilar opacities which may be due to edema or pneumon ia. Dictated by: Eren Mcwilliams on 03/26/2019 3:17 PM. .
[2019-03-26 15:25] LABS: BILIRUBIN,TOTAL 0.3 mg/dL (0.2-1.0); CREATININE 5.2 mg/dL (0.5-0.9)
[2019-03-26 15:26] LABS: TOTAL PROTEIN 6.5 g/dL (6.6-8.7)
[2019-03-26 15:30] LABS: ALB/GLOB RATIO 1.6 (1.1-1.8)
== END 2019-03-26 16:38 | disposition home or self-care (01) ==
LOC: ER 14:37
DX: I13.0 Hypertensive heart and chronic kidney disease with heart failure and stage 1 through stage 4 chronic kidney disease, or unspecified chronic kidney disease (principal); R53.1 Weakness; E11.22 Type 2 diabetes mellitus with diabetic chronic kidney disease; N18.4 Chronic kidney disease, stage 4 (severe); I50.9 Heart failure, unspecified; M54.2 Cervicalgia; Z99.2 Dependence on renal dialysis; Z79.84 Long term (current) use of oral hypoglycemic drugs
CPT/HCPCS: 71046; 80053; 85025; 93005; 93010; 99284; 99285

== ENCOUNTER 2019-04-05 12:40 | Emergency (ER) | payer MEDICARE ==
[2019-04-05 13:50] LABS: ABSOLUTE NEUTROPHIL COUNT 5.45; BASO % 0.2 % (0-6); HEMATOCRIT 35.5 % (35.0-47.0); HEMOGLOBIN 10.9 gm/dl (11.6-16.0); LYMPH % 6.3 % (16-45); MEAN CELL VOLUME 99.2 fl (81-97); MEAN CORPUSCULAR HEMOGLOBIN 30.4 pg (27-33); MEAN CORPUSCULAR HGB CONC 30.7 g/dl (32-36); MEAN PLATELET VOLUME 9.5 fl (7.4-10.4); MONO % 5.8 % (0-9); PLATELET COUNT 184 K/uL (130-400); RED BLOOD COUNT 3.58 M/uL (3.80-5.40); RED CELL DISTRIBUTION WIDTH 14.6 % (11.5-14.5); WHITE BLOOD COUNT W/O DIFF 6.4 K/uL (4.2-12.2)
[2019-04-05] MEDS ORDERED: IPRATROPIUM/ALBUTEROL (0.5MG/3MG) NEB INH ONE (13:56)
[2019-04-05 14:00] LABS: CREATININE 5.2 mg/dL (0.5-0.9)
--- NOTE | 2019-04-05 15:06 | RADIOLOGY REPORT ---
EXAMINATION: Two View Chest Radiographs EXAM DATE: 04/05/2019 3:02 PM TECHNIQUE: Frontal and lateral views INDICATION: cough COMPARISON: 03/26/2019 ENCOUNTER: Initial FINDINGS: The heart and mediastinum are unremarkable. There is no acute consolidation. Stable prominence of int erstitial markings throughout both lungs. Interval clearing of the right lower lung field. IMPRESSION: Stable prominence of coarse interstitial markings bilaterally. No acute focal consolidation. Dictated by: Nikolay Roque MD on 04/05/2019 3:02 PM. .
--- NOTE | 2019-04-05 15:45 | Emergency Department Record ---
History of Present Illness - General Chief Complaint: Cough Stated Complaint: DISORIENTED,COUGH Time Seen by Provider: 04/05/19 12:55 Source: Patient, RN notes reviewed Mode of Arrival: Ambulatory - History of Present Illness Initial Comments: cough for couple weeks but two days ago much worse and green sputm and she uses home oxygen and her portable tanks are gone and she has a concentrator at home. patient is also on dialysis three days a week and next dialysis is saturday. Not toxic looking and alert and oriented times three but doesn't know the year she said she doesn't usually know the year. no chest pain MD Complaint: Cough Onset/Timin -: Week(s) - Related Data Previous Rx's Medication Instructions Recorded Azithromycin 250 mg PO DAILY #6 tablet 04/05/19 Prednisone [Prednisone 10Mg] 10 mg PO ASDIR #30 tab 04/05/19 Allergies Allergy/AdvReac Type Severity Reaction Status Date / Time zolpidem [From Ambien] AdvReac ALTERED Verified 03/26/19 14:49 MENTAL STATUS Travel Screening - Travel/Exposure Within Last 30 Days Have you traveled within the last 30 days?: No - Travel/Exposure Within Last Year Have you traveled outside the [place] in the last year?: No - Additonal Travel Details Have you been exposed to anyone with a communicable illness?: No - Travel Symptoms Symptom Screening: None Review of Systems Reviewed: No additional complaints except as noted below Constitutional: Reports: As per HPI. Denies: Chills, Fever, Malaise, Night sweats, Weakness, Weight change Eyes: Reports: As per HPI. Denies: Eye discharge, Eye pain, Photophobia, Vision change ENT: Reports: As per HPI, Congestion. Denies: Dental pain, Ear pain, Epistaxis, Hearing loss, Throat pain Respiratory: Reports: As per HPI, Cough. Denies: Dyspnea, Hemoptysis, Stridor, Wheezes Cardiovascular: Reports: As per HPI. Denies: Arrhythmia, Chest pain, Dyspnea on exertion, Edema, Murmurs, Orthopnea, Palpitations, Paroxysmal nocturnal dyspnea, Rheumatic Fever, Syncope Endocrine: Reports: As per HPI. Denies: Fatigue, Heat or cold intolerance, Polydipsia, Polyuria Gastrointestinal: Reports: As per HPI. Denies: Abdominal pain, Constipation, Diarrhea, Hematemesis, Hematochezia, Melena, Nausea, Vomiting Genitourinary: Reports: As per HPI. Denies: Abnormal menses, Discharge, Dyspareunia, Dysuria, Frequency, Hematuria, Incontinence, Retention, Urgency Musculoskeletal: Reports: As per HPI. Denies: Arthralgia, Back pain, Gout, Joint swelling, Myalgia, Neck pain Skin: Reports: As per HPI. Denies: Bruising, Change in color, Change in h air/nails, Lesions, Pruritus, Rash Neurological: Reports: As per HPI. Denies: Abnormal gait, Confusion, Headache, Numbness, Paresthesias, Seizure, Tingling, Tremors, Vertigo, Weakness Psychiatric: Reports: As per HPI. Denies: Anxiety, Auditory hallucinations, Depression, Homicidal thoughts, Suicidal thoughts, Visual hallucinations Hematological/Lymphatic: Reports: As per HPI. Denies: Anemia, Blood Clots, Easy bleeding, Easy bruising, Swollen glands Past Medical History - SOCIAL HISTORY Smoking Status: Former smoker Alcohol Use: Occasional Drug Use: None - RESPIRATORY Hx Respiratory Disorders: Yes Hx COPD: Yes Comment:: O2 at night - CARDIOVASCULAR Hx Cardio Disorders: Yes Hx CHF: Yes Comment:: high cholesterol - NEURO Hx Neuro Disorders: Yes Hx TIA: Yes ("MINI" STROKES) - GI Hx GI Disorders: No - Hx Genitourinary Disorders: Yes Hx Dialysis: Yes (M,W,F) Hx Renal Disease: Yes (STAGE 4) Hx UTI: Yes (with urosepsis) - ENDOCRINE Hx Endocrine Disorders: Yes Hx Diabetes: Yes (DMII) Hx Thyroid Disease: No - MUSCULOSKELETAL Hx Musculoskeletal Disorders: Yes Hx Gout: Yes - PSYCH Hx Psych Problems: No - HEMATOLOGY/ONCOLOGY Hx Hematology/Oncology Disorders: No Family Medical History Any Significant Family History?: No Hx Cancer: Brother/Sister Hx Heart Disease: Mother Physical Exam - General General Appearance: Alert, Oriented x3, Cooperative, No acute distress - Head Head exam: Normal inspection - Eye Eye exam: Normal appearance, PERRL Pupils: Normal accommodation - ENT ENT exam: Normal exam, Mucous membranes moist, Normal external ear exam, Normal orophraynx, TM's normal bilaterally Ear exam: Normal external inspection. negative: External canal tenderness Nasal Exam: Normal inspection. negative: Discharge, Sinus tenderness Mouth exam: Normal external inspection, Tongue normal Teeth exam: Normal inspection. negative: Dental caries Throat exam: Normal inspection. negative: Tonsillar erythema, Tonsillar exudate - Neck Neck exam: Normal inspection, Full ROM. negative: Tenderness - Respiratory Respiratory exam: Wheezes. negative: Respiratory distress - Cardiovascular Cardiovascular Exam: Regular rate, Normal rhythm, Normal heart sounds - GI/Abdominal GI/Abdominal exam: Soft, Normal bowel sounds. negative: Tenderness - Rectal Rectal exam: Deferred - exam: Deferred - Extremities Extremities exam: Normal inspection, Full ROM, Normal capillary refill. negative: Tenderness - Back Back exam: Reports: Normal inspection, Full ROM. Denies: Muscle spasm, Rash noted, Tenderness - Neurological Neurological exam: Alert, Normal gait, Oriented X3, Reflexes normal - Psychiatric Psychiatric exam: Normal affect, Normal mood - Skin Skin exam: Dry, Intact, Normal color, Warm Course Vital Signs 04/05/19 04/05/19 04/05/19 12:43 14:00 15:04 Temperature 98.3 F Pulse Rate 84 78 Pulse Rate [ 83 Pulse Ox Probe] Respiratory 20 20 20 Rate Blood Pressure 141/66 Blood Pressure 156/69 [Left Arm] Pulse Ox 75 L 94 L 96 Medical Decision Making - Data Complexity MDM Data: Labs Ordered and/or Reviewed (wbc 6,400), X-Ray Ordered and/or Revie wed (chest xray chronic changes) - Lab Data Result diagrams: 04/05/19 13:00 04/05/19 13:00 Lab Results 04/05/19 04/05/19 04/05/19 Range/Units 13:00 13:00 13:00 WBC 6.4 (4.2-12.2) K/uL RBC 3.58 L (3.80-5.40) M/uL Hgb 10.9 L (11.6-16.0) gm/dl Hct 35.5 (35.0-47.0) % MCV 99.2 H (81-97) fl MCH 30.4 (27-33) pg MCHC 30.7 L (32-36) g/dl RDW 14.6 H (11.5-14.5) % Plt Count 184 (130-400) K/uL MPV 9.5 (7.4-10.4) fl Neutrophils % 86.0 H (47-80) % Band Neutrophils % 0.0 (0-5) % Lymphocytes % 6.3 L (16-45) % Monocytes % 5.8 (0-9) % Eosinophils % 2.0 (0-6) % Basophils % 0.2 (0-6) % Absolute Neutrophils 5.45 Lymphocytes 7.0 L (16-45) % Monocytes 7.0 (0-9) % Basophils 0.0 (0-6) % Eosinophil Count 0.0 (0-6) % APTT 34.7 (24.5-39.1) SECONDS Sodium 137 (136-145) mmol/L Potassium 4.5 (3.4-4.5) mmol/L Chloride 97 L (98-107) mmol/L Carbon Dioxide 26.0 (22-29) mmol/L Anion Gap 14.0 (7-16) BUN 26 H (8-23) mg/dL Creatinine 5.2 H (0.5-0.9) mg/dL Estimated GFR 9 mL/min Random Glucose 171 H (74-109) mg/dL Calcium 9.0 (8.8-10.2) mg/dL Disposition Clinical Impression: Bronchitis, Hypoxia, On home O2 COPD (chronic obstructive pulmonary disease) Qualifiers: COPD type: COPD with acute exacerbation Qualified Code(s): J44.1 - Chronic obstructive pulmonary disease with (acute) exacerbation Chronic renal failure Qualifiers: Chronic kidney disease stage: stage 5 Qualified Code(s): N18.5 - Chronic kidney disease, stage 5 Disposition: Home, Self-Care Condition: (2) Stable Instructions: Acute Bronchitis (ED), COPD (Chronic Obstructive Pulmonary Disease) (ED) Additional Instructions: follow up with family DR in 4 days Prescriptions: Azithromycin 250 mg PO DAILY #6 tablet Prednisone [Prednisone 10Mg] 10 mg PO ASDIR #30 tab Time of Disposition: 15:52 Quality - Quality Measures Quality Measures: N/A - Blood Pressure Screening Does Patient Have Any of the Following: No, Active Dx of HTN Blood Pressure Classification: Hypertensive Reading Systolic Measurement: 141 Diastolic Measurement: 66 Screening for High Blood Pressure: Patient Exclusion, Hx of HTN [G9744]
[2019-04-05] MEDS ORDERED: AZITHROMYCIN 500 MG TABLET PO ONE (15:48)
== END 2019-04-05 16:11 | disposition home or self-care (01) ==
LOC: ER 12:40
DX: J44.1 Chronic obstructive pulmonary disease with (acute) exacerbation (principal); J20.9 Acute bronchitis, unspecified; J44.0 Chronic obstructive pulmonary disease with (acute) lower respiratory infection; Z99.81 Dependence on supplemental oxygen; E11.22 Type 2 diabetes mellitus with diabetic chronic kidney disease; N18.5 Chronic kidney disease, stage 5; Z99.2 Dependence on renal dialysis; Z79.84 Long term (current) use of oral hypoglycemic drugs
CPT/HCPCS: 71046; 80048; 85027; 85730; 94640; 99284